=== PATIENT | male | born 1975 | race Caucasian/White ===

== ENCOUNTER 2020-03-01 15:00 | Emergency (ER) | payer BC ==
[2020-03-01] MEDS ORDERED: Aspirin Chewable 81 MG TAB ONE (15:17)
[2020-03-01] MEDS ORDERED: Dexamethasone 4 mg/ml Vial ONE (15:17)
[2020-03-01] MEDS ORDERED: Magnesium 2 GM/50 ML BAG (IN WATER) ONE (15:17)
[2020-03-01] MEDS ORDERED: Albuterol 200 PUFF (6.7GM INHALER) ONE (15:17)
[2020-03-01] MEDS ORDERED: Dexamethasone 4 MG TAB ONE (15:22)
[2020-03-01 15:29] LABS: #Basophils 0.1 thou/uL (0.0-0.2); #Lymphocytes 0.5 thou/uL (1.20-3.40); #Monocytes 0.6 thou/uL (0.11-0.59); #Neutrophils 7.3 thou/uL (1.40-6.50); %Basophils 1.1 % (0.0-1.0); %Eosinophils 0.4 % (0.0-10.0); %Lymphocytes 5.5 % (21.0-51.0); %Monocytes 6.8 % (0.0-10.0); %Neutrophils 86.2 % (42.0-75.0); Hemoglobin 14.6 g/dL (14.0-18.0); Mean Corpuscular HGB CONC 32.2 g/dL (32.0-36.0); Mean Corpuscular Hemoglobin 26.8 pg (27.0-31.0); Mean Corpuscular Volume 83.4 fL (78.0-98.0); Mean Platelet Volume 6.5 fL (7.4-10.4); Platelet Count 472 thou/uL (130-400); RBC Distribution Width 13.2 % (11.5-14.5); Red Blood Cell (RBC) Count 5.45 mill/uL (4.70-6.10); White Blood Cell (WBC) Count 8.5 thou/uL (4.8-10.8)
[2020-03-01 15:37] LABS: Base Excess-Venous 1.9 mmol/L (-2.0 to 3.0); Bicarbonate (HCO3v) 27.3 mmol/L (22.0-28.0); CO2 Tension (PvCO2) 44.7 mmHg (40.0-50.0); Calcium, Ionized 0.98 mmol/L (1.15-1.33); Chloride 103 mmol/L (98-107); Hemoglobin - Calc 14.8 g/dL (14.0-18.0); Potassium 3.3 mmol/L (3.5-5.1); Sodium 145 mmol/L (138-145); T. Carbon Dioxide 28.7 mmol/L (22.0-28.0); vO2 Saturation-calc 72.4 % (60.0-85.0)
[2020-03-01 15:40] LABS: ALT (SGPT) 27 U/L (8-55); AST (SGOT) 37 U/L (5-34); Albumin 3.2 g/dL (3.5-5.0); Alkaline Phosphatase 62 U/L (40-110); Anion Gap 20 mmol/L (10-20); BUN (Urea Nitrogen) 35 mg/dL (8.9-20.6); Bilirubin, Total 0.9 mg/dL (0.2-1.2); Calc. Creatinine Clearance 0 mL/min (70-130); Calcium 7.9 mg/dL (7.8-10.44); Carbon Dioxide 26 mmol/L (22-29); Chloride 101 mmol/L (98-107); Estimated GFR-MDRD 32; Globulin 3.7 g/dL (2.4-3.5); Magnesium 3.2 mg/dL (1.6-2.6); Potassium 3.5 mmol/L (3.5-5.1); Protein, Total 6.9 g/dL (6.0-8.3); Sodium 143 mmol/L (136-145)
[2020-03-01] MEDS ORDERED: cefTRIAXone\\ROCEPHIN 2 GM VIAL ONE (15:45)
[2020-03-01] MEDS ORDERED: Azithromycin 500 MG VIAL ONE (15:45)
[2020-03-01 15:49] LABS: Glucose 726 mg/dL (70-105)
[2020-03-01] MEDS ORDERED: Heparin 5,000 UNITS/ML VIAL ONE ×2 (15:57→16:04)
[2020-03-01] MEDS ORDERED: Insulin Regular 300 UNITS/3 ML VIAL ONE (15:57)
[2020-03-01 16:12] LABS: Bilirubin Negative (Negative); Blood, Urine Moderate (Negative); Clarity Clear (Clear); Glucose, Urine (Dipstick) >=1000 mg/dL (Negative); Ketone, Urine Negative (Negative); Leukocyte Negative (Negative); Nitrite Negative (Negative); Protein, Urine (Dipstick) Trace mg/dL (Neg-Trace); pH, Urine 5.5 (5.0-9.0)
[2020-03-01 16:13] LABS: Specific Gravity, Urine 1.033 (1.002-1.036)
[2020-03-01 16:13] LABS: INR-International Normal Ratio 1.1; PTT 31.2 sec (22.9-36.1); Prothrombin Time 14.9 sec (12.0-14.7)
[2020-03-01 16:20] LABS: Bacteria/HPF 1+ HPF (None Seen); RBC/HPF 0-3 HPF (0-3); Squamous Epithelial 0-3 HPF (0-3); WBC/HPF 0-3 HPF (0-3)
--- NOTE | 2020-03-01 17:00 | RAD ---
PORTABLE CHEST: Date: 03-01-2020 An AP portable film at 1535 is submitted. Comparison: None FINDINGS: The heart is normal in size. The vasculature seems somewhat prominent, but aside from it, there also appears to be several patchy areas throughout the lungs. An infectious element is suspected, with or without mild congestion. There are no effusions. In the proper clinical context, Covid could give thi s appearance. IMPRESSION: Diffuse prominence of parenchymal markings with a few more confluent patchy areas, most suggestive of infection. A superimposed congestive element is not excluded. POS: HOME
== END 2020-03-01 16:26 | disposition short-term general hospital (02) ==
LOC: BURERS 15:00
DX: U07.1 COVID-19 (principal); E11.65 Type 2 diabetes mellitus with hyperglycemia; N17.9 Acute kidney failure, unspecified; E87.2 Acidosis; R65.20 Severe sepsis without septic shock
CPT/HCPCS: 36416; 51701; 71045; 80053; 81003; 81015; 82330; 82803; 83605; 83735; 83880; 84484; 85025; 85379; 85610; 85730; 87040; 87086; 93005; 96365; 96366; 96367; 96374; 96375; J0456; J0696; J1100; J1644; J1815; J3475; J7620; J8540